=== PATIENT | female | born 1945 | race Caucasian/White ===

== ENCOUNTER 2018-12-18 23:35 | Inpatient (IN) | payer MEDICARE ==
[~2018-12-18] VITALS: Ht 160 cm; Wt 54.5 kg
--- NOTE | ~2018-12-18 | EKG ---
[place], [place] ELECTROCARDIOGRAM REPORT NAME: TYESHA FAUSTIN UNIT #: [id number] ROOM: 412 DOCTOR: LETTY DRAFT REPORT BIRTHDATE: [birth year] [facility] Test Date: 2018-12-18 Test Time: 23:51:43 Pat Name: TYESHA FAUSTIN Department: Room: 412 Gender: F Yarn Spinner: Brigitte Siegel : 1945 Requested By: DANIELA ARAGON Order Number: [id number] Reading MD: Mini Chaves MD Measurements Intervals [place] Rate: 76 P: 44 CT: 154 QRS: 45 QRSD: 89 T: 56 QT: 390 QTc: 439 Interpretive Statements Sinus rhythm Minimal ST elevation, inferior leads Electronically Signed On 12-19-2018 14:10:10 PDT by Mini Chaves MD CM:EKGRPT:ELECTROCARDIOGRAM REPORT [id number] 1410 DANIELA PALACIOS DRAFT REPORT DANIELA ARAGON DO
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
[2018-12-18 23:38] VITALS: BP 137/57
[2018-12-18] MEDS ORDERED: NORVASC5 MG PO (23:52)
[2018-12-18] MEDS ORDERED: APAP325 MG PO (23:52)
[2018-12-18] MEDS ORDERED: ZESTRIL20 MG PO (23:52)
[2018-12-19 00:09] LABS: BASO % 0.3 % (0.0-1.0); EOS # 0.1 10*3/uL (0.0-0.4); HEMATOCRIT 30.2 % (37.0-47.0); HEMOGLOBIN 10.6 g/dl (12.0-16.0); LYMPH # 1.9 10*3/uL (1.3-4.4); LYMPH % 26.9 % (27.0-41.0); MEAN CELL VOLUME 94.1 fl (81.0-99.0); MEAN CORPUSCULAR HGB CONC 35.1 g/dl (33.0-37.0); MEAN PLATELET VOLUME 9.4 fl (9.6-12.3); MONO # 0.8 10*3/uL (0.1-1.0); NEUT # 4.2 10*3/uL (2.3-7.9); NEUT % 59.7 % (47.0-73.0); PLATELET COUNT AUTOMATED 192 10*3/uL (130-400); RED BLOOD COUNT 3.21 10*6/uL (4.10-5.10); RED CELL DISTRI WIDTH 12.8 % (0-14.5); WHITE BLOOD COUNT 7.1 10*3/uL (4.8-10.8)
[2018-12-19 00:28] LABS: ACETAMINOPHEN (TYLENOL) < 5.0 ug/ml (10-30); ALBUMIN 3.8 gm/dl (3.1-4.5); ALKALINE PHOSPHATASE 132 U/L (45-117); BUN 14 mg/dl (7-24); CHLORIDE 106 mmol/L (98-107); CREATININE 0.82 mg/dL (0.55-1.02); ETHYL ALCOHOL < 3.0 mg/dl (<3); POTASSIUM 3.7 mmol/L (3.5-5.1); SGOT/AST 22 IU/L (3-35); SGPT/ALT 26 U/L (12-78); SODIUM 142 mmol/L (136-145); TOTAL PROTEIN 6.9 gm/dL (6.4-8.2)
--- NOTE | 2018-12-19 00:42 | NUR ---
Patient resting in bed, no needs voiced at this time. Will continue to closely monitor.
[2018-12-19 00:49] LABS: BILIRUBIN NEGATIVE (NEGATIVE); BLOOD 1+ (NEGATIVE); CLARITY SL CLOUDY (CLEAR); COLOR YELLOW (YELLOW); GLUCOSE NEGATIVE (NEGATIVE); KETONE NEGATIVE (NEGATIVE); LEUKO ESTERASE 1+ (NEGATIVE); NITRITE NEGATIVE (NEGATIVE); UROBILINOGEN 0.2 E.U./dl (0.2-1.0)
[2018-12-19 00:56] LABS: BACTERIA 1+
[2018-12-19 01:00] LABS: URINE AMPHETAMINES < 1000 (1000ng/ml); URINE BARBITURATES < 200 (200ng/ml); URINE BENZODIAZEPINES < 200 (200ng/ml); URINE CANNABINOIDS (THC) < 50 (50ng/ml); URINE COCAINE < 300 (300ng/ml); URINE METHADONE < 300 (300ng/ml); URINE OPIATES < 300 (300ng/ml); URINE PHENCYCLIDINE < 25 (25ng/ml)
--- NOTE | 2018-12-19 01:00 | NUR ---
Patient ambulated around room by self. Assisted back into bed. Lights dimmed to promote rest. Will continue to monitor.
[2018-12-19 02:30] VITALS: BP 156/69
--- NOTE | 2018-12-19 02:32 | NUR ---
Time: 231 A 73 year old FEMALE admitted to 4E under services of BAY DAVIS DO. Pt. arrived via bed from ER. Chief complaint: COMBATIVE/UTI. KRISHNA LUGO
[2018-12-19] MEDS ORDERED: MILK OF MA400 MG/5 M PO (02:46)
--- NOTE | 2018-12-19 04:30 | NUR ---
SLEEPING IN BED. RESP-EASY AND REGULAR. CALL LIGHT IN REACH. BED ALARM ON.
--- NOTE | 2018-12-19 06:50 | NUR ---
PT SLEEPING IN BED. RESP-EASY AND REGULAR. CALL LIGHT IN REACH. BED ALARM ON.
[2018-12-19 08:00] VITALS: BP 156/62
[2018-12-19 12:00] VITALS: BP 150/69
[2018-12-19 12:24] LABS: VITAMIN D, 25-HYDROXY 10.4 ng/mL (30-100)
--- NOTE | 2018-12-19 15:12 | NUR ---
PT TRANSFERRED TO THE [facility] AT THIS TIME AFTER DISCHARGED.
--- NOTE | 2018-12-19 15:16 | NUR ---
PTS INFORMED OF TRANFER TO THE [facility].
== END 2018-12-19 15:12 | disposition home health service (06) | DRG 690 ==
LOC: ED 23:35 → 4E 12-19 01:46 → EDHOLD 12-19 01:46 → 4E 12-19 02:26
PROVIDERS: Student in an Organized Health Care Education/Training Program; ADMIT Internal Medicine
DX: N39.0 Urinary tract infection, site not specified (principal); G30.9 Alzheimer's disease, unspecified; F02.80 Dementia in other diseases classified elsewhere, unspecified severity, without behavioral disturbance, psychotic disturbance, mood disturbance, and anxiety; I10 Essential (primary) hypertension; F63.81 Intermittent explosive disorder; D64.9 Anemia, unspecified; R62.7 Adult failure to thrive; E53.8 Deficiency of other specified B group vitamins; E55.9 Vitamin D deficiency, unspecified; F91.9 Conduct disorder, unspecified; Z79.899 Other long term (current) drug therapy; Z88.8 Allergy status to other drugs, medicaments and biological substances; Z91.011 Allergy to milk products